=== PATIENT | male | born 1975 | race Caucasian/White ===

== ENCOUNTER → 2021-05-11 13:26 | Outpatient (CLI) | payer OTHER, SELFPAY | PROVIDERS: Visit Provider Plastic Surgery | DX: Z01.812 Encounter for preprocedural laboratory examination (principal); Z11.52 Encounter for screening for COVID-19; S62.619B Displaced fracture of proximal phalanx of unspecified finger, initial encounter for open fracture | CPT/HCPCS: C9803; U0003; U0005 ==